=== PATIENT | male | born 1970 | race Caucasian/White ===

== ENCOUNTER 2020-11-02 12:01 | Emergency (ER) | payer BC ==
--- NOTE | 2020-11-02 12:37 | EDM.PDOC ---
ED HPI GENERAL MEDICAL PROBLEM - General Chief Complaint: Upper Extremity Injury/Pain Stated Complaint: RT WRIST Time Seen by Provider: 11/02/20 12:03 Source of Information: Reports: Patient History Limitations: Reports: No Limitations - History of Present Illness INITIAL COMMENTS - FREE TEXT/NARRATIVE: HISTORY AND PHYSICAL: History of present illness: Patient is a 50-year-old male who presents to the ED today with concern of right wrist pain that has been ongoing for the past several days. Patient states that he does work with his hands extensively and notices that the more he uses the wrist, the worse that it hurts. Patient denies any known trauma or injury. Patient states that with certain movements, he does feel tingling sensations of his fingers. Patient denies any other symptoms or concerns. Patient denies fever, chills, chest pain, shortness of breath, or cough. Denies headache, neck stiff ness, change in vision, syncope, or near syncope. Denies nausea, vomiting, abdominal pain, diarrhea, constipation, or dysuria. Has not noted any blood in urine or stool. Patient has been eating and drinking appropriately. Review of systems: As per history of present illness and below otherwise all systems reviewed and negative. Past medical history: As per history of present illness and as reviewed below otherwise noncontributory. Surgical history: As per history of present illness and as reviewed below otherwise noncontributory. Social history: See social history for further information Family history: As per history of present illness and as reviewed below otherwise noncontributory. Physical exam: General: Patient is alert, oriented, and in no acute distress. Patient sitting comfortably on exam table. Vitals stable and reviewed by me. HEENT: Atraumatic, normocephalic, pupils equal and reactive bilaterally, negative for conjunctival pallor or scleral icterus, mucous membranes moist, TMs normal bilaterally, throat clear, neck supple, nontender, trachea midline. No drooling or trismus noted. No meningeal signs. No hot potato voice noted. Lungs: Clear to auscultation, breath sounds equal bilaterally, chest nontender. Heart: S1S2, regular rate and rhythm without overt murmur Abdomen: Soft, nondistended, nontender. Negative for masses or hepatosplenomegaly. Negative for costovertebral tenderness. Pelvis: Stable nontender. Genitourinary: Deferred. Rectal: Deferred. Skin: Intact, warm, dry. No lesions or rashes noted. Extremities: No obvious deformity of the complete right upper extremity. No erythema, edema, or ecchymosis noted of the complete right upper extremity. Radial pulse grossly intact with cap refill < 2 seconds of the RUE. Positive Phalen and tinnels sign suggestive of carpal tunnel of the right. Otherwise, atraumatic, negative for cords or calf pain. Neurovascular unremarkable. Neuro: Awake, alert, oriented. Cranial nerves II through XII unremarkable. Cerebellum unremarkable. Motor and sensory unremarkable throughout. Exam nonfocal. Notes: On initial exam, patient is comfortable and vitally stable. Clinically, he is positive for Phalen's and Tinel's sign classically and I suspect carpal tunnel. Wrist xR shows no acute fractures/dislocations. Signs and symptoms that were prompt return to the ED thoroughly discussed with patient. Discussed importance for follow-up with a primary care provider. Voices understanding and is agreeable to plan of care. Denies any further questions or concerns at this time. Diagnostics: Wrist XR Therapeutics: Cock-up wrist splint, right- to use until f/u with PCP for pain reduction Prescription: None Impression: Carpal tunnel, right Plan: 1. Use the wrist splint as directed and as discussed. 2. Tylenol and/or Ibuprofen as directed for pain management or discomfort. 3. Follow up with the primary care provider as discussed. Return to the ED as needed and as discussed. Definitive disposition and diagnosis as appropriate pending reevaluation and review of above. right wrist, shoots up to elbow Pain Score (Numeric/FACES): 10 - Related Data Allergies Allergy/AdvReac Type Severity Reaction Status Date / Time No Known Allergies Allergy Verified 11/02/20 12:18 Home Meds: Home Meds Cholecalciferol (Vitamin D3) [Vitamin D3] 11/02/20 [History] Multivitamin 1 tab PO DAILY 11/02/20 [History] Past Medical History - Past Health History Medical/Surgical History: Denies Medical/Surgical History - Infectious Disease History Infectious Disease History: Reports: Chicken Pox - Past Surgical History GI Surgical History: Reports: Hernia, Abdominal Social & Family History - Family History HEENT: Reports: Cataract Cardiac: Reports: Hypertension - Tobacco Use Tobacco Use Status *Q: Current Every Day Tobacco User Years of Tobacco use: 10 Packs/Tins Daily: 1 - Alcohol Use Days Per Week of Alcohol Use: 3 Number of Drinks Per Day: 3 Total Drinks Per Week: 9 - Recreational Drug Use Recreational Drug Use: No Review of Systems - Review of Systems Review Of Systems: Comprehensive ROS is negative, except as noted in HPI. ED EXAM, GENERAL - Physical Exam Exam: See Below (see dictation) Course - Vital Signs Last Recorded V/S: Last Vital Signs Temp 97.9 F 11/02/20 13:20 Pulse 70 11/02/20 13:20 Resp 18 11/02/20 13:20 BP 170/102 H 11/02/20 13:20 Pulse Ox 94 L 11/02/20 13:20 - Orders/Labs/Meds Orders: Active Orders 24 hr Category Date Time Status DME for Discharge [COMM] Stat Oth 11/02/20 12:35 Ordered Departure - Departure Time of Disposition: 12:36 Disposition: Home, Self-Care 01 Clinical Impression: Carpal tunnel syndrome of right wrist - Discharge Information Instructions: Carpal Tunnel Syndrome, [id number] Referrals: PCP,None [Primary Care Provider] - Forms: ED Department Discharge Additional Instructions: The following information is given to patients seen in the emergency department who are being discharged to home. This information is to outline your options for follow-up care. We provide all patients seen in our emergency department with a follow-up referral. The need for follow-up, as well as the timing and circumstances, are variable depending upon the specifics of your emergency department visit. If you don't have a primary care physician on staff, we will provide you with a referral. We always advise you to contact your personal physician following an emergency department visit to inform them of the circumstance of the visit and for follow-up with them and/or the need for any referrals to a consulting specialist. The emergency department will also refer you to a specialist when appropriate. This referral assures that you have the opportunity for follow-up care with a specialist. All of these measure are taken in an effort to provide you with optimal care, which includes your follow-up. Under all circumstances we always encourage you to contact your private physician who remains a resource for coordinating your care. When calling for fo llow-up care, please make the office aware that this follow-up is from your recent emergency room visit. If for any reason you are refused follow-up, please contact the [facility] Emergency Department at and asked to speak to the emergency department charge nurse. [facility] [address] [place] [address] [address] 1. Use the wrist splint as directed and as discussed. 2. Tylenol and/or Ibuprofen as directed for pain management or discomfort. 3. Follow up with the primary care provider as discussed. Return to the ED as needed and as discussed. Sepsis Event Note (ED) - Evaluation Sepsis Screening Result: No Definite Risk - Focused Exam Vital Signs: Vital Signs Temp Pulse Resp BP Pulse Ox 11/02/20 13:20 97.9 F 70 18 170/102 H 94 L 11/02/20 12:12 95.7 F L 74 18 190/111 H 96 - My Orders Last 24 Hours: My Active Orders 11/02/20 12:35 DME for Discharge [COMM] Stat - Assessment/Plan Last 24 Hours: My Active Orders 11/02/20 12:35 DME for Discharge [COMM] Stat
--- NOTE | 2020-11-02 13:56 | CR ---
Indication: Injury and pain Technique: Right wrist 3 view Comparison: None Findings: Bones: Alignment is normal. No fractures or bone lesions. Joint spaces: Unremarkable. Soft tissues: Unremarkable. Impression: No sign of acute injury in the right wrist. Dictated by David Núñez MD @ Nov 02 2020 1:44PM Signed by Dr. David Núñez @ Nov 02 2020 1:55PM
== END 2020-11-02 13:20 | disposition home or self-care (01) ==
LOC: MW.ED 12:01
DX: G56.01 Carpal tunnel syndrome, right upper limb (principal); Z72.0 Tobacco use
CPT/HCPCS: 73110-26-RT; 73110-RT; 99282; 99283

== ENCOUNTER 2021-12-15 13:03 | Emergency (ER) | payer BC | END 2021-12-15 15:55 | disposition home or self-care (01) | LOC: MW.ED 13:03 | DX: M25.562 Pain in left knee (principal); Z79.899 Other long term (current) drug therapy | CPT/HCPCS: 73562-26-LT; 73562-LT; 99283-25 ==